=== PATIENT | male | born 1985 | race Caucasian/White ===

== ENCOUNTER 2017-11-30 11:19 | Emergency (ER) | payer OTHER ==
[~2017-11-30] VITALS: Ht 182.9 cm; Wt 122.5 kg
[2017-11-30 12:18] LABS: ABSOLUTE EOSINOPHILS 0.1 thou/uL (0.0-0.7); ABSOLUTE LYMPHOCYTES 1.3 thou/uL (0.8-5.3); ABSOLUTE MONOCYTES 0.9 thou/uL (0.0-1.2); ABSOLUTE NEUTROPHILS 5.9 thou/uL (1.6-8.1); BASOPHILS 0.6 %; HEMATOCRIT 43.8 % (42.0-52.0); HEMOGLOBIN 14.9 gm/dL (14.0-18.0); MCH 31.6 pg (26.0-34.0); MONOCYTES 10.6 %; MPV 7.3 fl. (7.2-11.1); NUCLEATED RBCS 0 /100WBC; PLATELET COUNT* 177 thou/uL (150-400); POLYS 71.8 %; RBC 4.72 mil/uL (4.50-6.00); RDW-CV 12.3 % (10.5-14.5); WBC 8.2 thou/uL (4.0-11.0)
[2017-11-30 12:28] LABS: CALCIUM 8.8 mg/dL (8.5-10.1); POTASSIUM 4.4 mmol/L (3.5-5.1)
[2017-11-30 12:33] LABS: ALBUMIN 3.8 g/dL (3.4-5.0); TOTAL BILIRUBIN 0.6 mg/dL (<0.1-1.0); TOTAL PROTEIN 8.1 g/dL (6.4-8.2)
[2017-11-30 12:40] LABS: INFLUENZA A ANTIGEN None Detected (None Detect); INFLUENZA B ANTIGEN None Detected (None Detect)
[2017-11-30] MEDS ORDERED: VENTOLIN HFA 1818 GM INH (13:04)
[2017-11-30] MEDS ORDERED: ALBUTEROL2.5 MG/31 INH (13:04)
[2017-11-30] MEDS ORDERED: AZITHROMYCIN 2250 MG PO (13:04)
[2017-11-30] MEDS ORDERED: PREDNISONE 20 M20 MG PO (13:04)
[2017-11-30] MEDS ORDERED: NEBULIZER MISCELL (13:04)
[2017-11-30 13:21] VITALS: BP 116/70
== END 2017-11-30 13:22 | disposition home or self-care (01) ==
LOC: M.ERS 11:19
PROVIDERS: Physician Assistant
DX: J18.1 Lobar pneumonia, unspecified organism (principal)